=== PATIENT | male | born 1990 | race Caucasian/White ===

== ENCOUNTER 2021-03-27 12:06 | Emergency (ER) | payer SELFPAY ==
[~2021-03-27] VITALS: Ht 175.2 cm; Wt 69.8 kg
--- NOTE | 2021-03-27 12:09 | ED Back Pain ---
General Chief Complaint: Back Problems Stated Complaint: QUE FLANK PAIN History of Present Illness Date Seen by Provider: Mar 27, 2021 Time Seen by Provider: 12:12 Initial Comments 30-year-old male presents with some bilateral lower back pain and upper abdominal pain that started yesterday. Patient reports he is "sick" patient has some chills but no fever patient with a headache. He reports that about 12 days ago he tested positive for strep was negative for Covid. Had 10 days of amoxicillin. Patient denies any nausea vomiting or diarrhea. He denies any cough, shortness of breath, sore throat. Patient reports that he has decreased urine had difficulty urinating. Allergies and Home Medications Allergies Coded Allergies: No Known Drug Allergies (Unverified , 03/27/21) Patient Home Medication List Home Medication List Reviewed: Yes Ciprofloxacin HCl (Ciprofloxacin HCl) 500 Mg Tablet, 500 MG PO BID Prescribed by: BRIAN LAY on 03/27/21 1354 Review of Systems Constitutional: chills; No fever Respiratory: No cough Cardiovascular: No chest pain Gastrointestinal: see HPI; No nausea, No vomiting Genitourinary: see HPI Musculoskeletal: see HPI, back pain Skin: no symptoms reported Psychiatric/Neurological: No Symptoms Reported Physical Exam Vital Signs Vital Signs - First Documented 03/27/21 12:09 Temp 37.5 Pulse 110 Resp 16 B/P (MAP) 130/88 (102) Pulse Ox 99 O2 Delivery Room Air Capillary Refill : Height, Weight, BMI Height: '" Weight: lbs. oz. kg; BMI Method: General Appearance: No Apparent Distress, Anxious Neck: Non Tender, Supple; No Lymphadenopathy (L), No Lymphadenopathy (R) Cardiovascular: Regular Rate, Rhythm Respiratory: Lungs Clear, Normal Breath Sounds Back: CVA Tenderness (L), CVA Tenderness (R) Extremity: Normal Capillary Refill, Normal Range of Motion, Non Tender Neurologic/Psychiatric: Alert, Oriented x3, No Motor/Sensory Deficits, Normal Mood/Affect, bulk sausage casing tier off II-XII Norm as Tested Skin: Normal Color, Warm/Dry Progress/Results/Core Measures Results/Orders Lab Results Laboratory Tests Test 03/27/21 12:10 03/27/21 13:05 Range/Units White Blood Count 14.2 H 4.3-11.0 10^3/uL Red Blood Count 5.05 4.30-5.52 10^6/uL Hemoglobin 15.0 13.3-17.7 g/dL Hematocrit 44 40-54 % Mean Corpuscular Volume 87 80-99 fL Mean Corpuscular Hemoglobin 30 25-34 pg Mean Corpuscular Hemoglobin Concent 34 32-36 g/dL Red Cell Distribution Width 13.2 10.0-14.5 % Platelet Count 305 130-400 10^3/uL Mean Platelet Volume 9.4 9.0-12.2 fL Immature Granulocyte % (Auto) 0 % Neutrophils (%) (Auto) 78 H 42-75 % Lymphocytes (%) (Auto) 12 12-44 % Monocytes (%) (Auto) 8 0-12 % Eosinophils (%) (Auto) 1 0-10 % Basophils (%) (Auto) 0 0-10 % Neutrophils # (Auto) 11.1 H 1.8-7.8 X 10^3 Lymphocytes # (Auto) 1.7 1.0-4.0 X 10^3 Monocytes # (Auto) 1.2 H 0.0-1.0 X 10^3 Eosinophils # (Auto) 0.1 0.0-0.3 10^3/uL Basophils # (Auto) 0.1 0.0-0.1 10^3/uL Immature Granulocyte # (Auto) 0.0 0.0-0.1 10^3/uL Neutrophils % (Manual) 84 % Lymphocytes % (Manual) 13 % Monocytes % (Manual) 3 % Sodium Level 133 L 135-145 MMOL/L Potassium Level 4.5 3.6-5.0 MMOL/L Chloride Level 96 L 98-107 MMOL/L Carbon Dioxide Level 25 21-32 MMOL/L Anion Gap 12 5-14 MMOL/L Blood Urea Nitrogen 8 7-18 MG/DL Creatinine 0.97 0.60-1.30 MG/DL Estimat Glomerular Filtration Rate 90 BUN/Creatinine Ratio 8 Glucose Level 100 70-105 MG/DL Lactic Acid Level 1.08 0.50-2.00 MMOL/L Calcium Level 9.1 8.5-10.1 MG/DL Corrected Calcium 8.9 8.5-10.1 MG/DL Magnesium Level 1.8 1.6-2.4 MG/DL Total Bilirubin 1.4 H 0.1-1.0 MG/DL Aspartate Amino Transf (AST/SGOT) 14 5-34 U/L Alanine Aminotransferase (ALT/SGPT) 10 0-55 U/L Alkaline Phosphatase 90 40-136 U/L C-Reactive Protein 5.24 H <0.50 MG/DL Total Protein 7.8 6.4-8.2 GM/DL Albumin 4.2 3.2-4.5 GM/DL Urine Color YELLOW Urine Clarity SLIGHTLY CLOUDY Urine pH 6.0 5-9 Urine Specific [place] 1.015 L 1.016-1.022 Urine Protein TRACE H NEGATIVE Urine Glucose (UA) NEGATIVE NEGATIVE Urine Ketones 1+ H NEGATIVE Urine Nitrite POSITIVE H NEGATIVE Urine Bilirubin NEGATIVE NEGATIVE Urine Urobilinogen 0.2 < = 1.0 MG/DL Urine Leukocyte Esterase 2+ H NEGATIVE Urine RBC (Auto) TRACE-I H NEGATIVE Urine RBC 0-2 /HPF Urine WBC >100 H /HPF Urine Crystals NONE /LPF Urine Bacteria LARGE H /HPF Urine Casts NONE /LPF Urine Mucus NEGATIVE /LPF Urine Culture Indicated YES My Orders Orders - LAY,BRIAN L DO Cbc With Automated Diff (03/27/21 12:15) Comprehensive Metabolic Panel (03/27/21 12:15) Lactic Acid Analyzer (03/27/21 12:15) Magnesium (03/27/21 12:15) Ua Culture If Indicated (03/27/21 12:15) Crp Fs (03/27/21 12:15) Abdomen Flat & Upright/Decub (03/27/21 12:15) Manual Differential (03/27/21 12:10) Ns Iv 1000 Ml (Sodium Chloride 0.9%) (03/27/21 13:06) Urine Culture (03/27/21 13:05) Ceftriaxone (Rocephin) (03/27/21 13:30) Ct Abdomen/Pelvis Wo (03/27/21 13:22) Medications Given in ED Current Medications Medications Dose Ordered Sig/Adwoa Route Start Time Stop Time Status Last Admin Dose Admin Ceftriaxone Sodium 2000 mg/ Sodium Chloride 50 ml @ 100 mls/hr ONCE ONCE IV 03/27/21 13:30 03/27/21 13:59 03/27/21 13:31 100 MLS/HR Vital Signs/I&O 03/27/21 12:09 Temp 37.5 Pulse 110 Resp 16 B/P (MAP) 130/88 (102) Pulse Ox 99 O2 Delivery Room Air Diagnostic Imaging Diagonstic Imaging: CT Plain Films/CT/US/NM/MRI: abdomen Comments CT ABDOMEN/PELVIS WO PROCEDURE: CT abdomen and pelvis without contrast. TECHNIQUE: Multiple contiguous axial images were obtained through the abdomen and pelvis without the use of intravenous contrast. Auto Exposure Controls were utilized during the CT exam to meet ALARA standards for radiation dose reduction. INDICATION: Flank pain and hematuria, elevated white blood cell count. I have no priors for comparison. FINDINGS: There is a punctate nonobstructing 2 mm stone within the left upper pole renal calyx. The right kidney was without stone. There is a very minimal induration and increased density of the perinephric fat adjacent to the lower pole of the right kidney. No opaque ureteral calculi. The bladder is poorly distended limiting its evaluation, its lumen contained no stone. The air-containing retrocecal appendix showed no thickening or adjacent edema or calculus. Liver, gallbladder, bile ducts, spleen, adrenals and pancreas unremarkable. The aorta is nonaneurysmal. IMPRESSION: 1. A punctate nonobstructing upper pole left renal calculus. There are equivocal findings for mild right-sided perinephric edema but no right-sided obstruction or opaque stone. This can be seen in the setting of infection or recently passed calculus, correlate clinically. 2. No evidence for appendicitis. No acute hepatobiliary abnormality. No bowel obstruction. 3. Urinary bladder poorly distended limiting its evaluation. Reviewed: Reviewed by Me, Reviewed/Discussed Diagonstic Imaging: Xray Plain Films/CT/US/NM/MRI: abdomen Comments Date of Exam:03/27/21 ABDOMEN FLAT & UPRIGHT/DECUB Indication: Abdominal pain, flank pain. Findings: The bowel gas pattern unremarkable. There is no abnormal fecal loading. No suspicious calcifications. No radiographically apparent organomegaly. Impression: Unremarkable supine and upright abdominal films. Reviewed: Reviewed by Me, Reviewed/Discussed Departure Impression Primary Impression: Urinary tract infection Qualified Codes: N10 - Acute pyelonephritis Disposition: 01 HOME, SELF-CARE Condition: Stable Departure-Patient Inst. Referrals: NO,LOCAL PHYSICIAN (PCP/Family) Primary Care Physician Patient Instructions: Kidney Infection (DC), Urinary Tract Infection, Adult ED Add. Discharge Instructions: Drink plenty of fluids Follow-up with your primary care provider in 3 to 4 days for recheck of your urine and ensure you are improving All discharge instructions reviewed with patient and/or family. Voiced understanding. Scripts Ciprofloxacin HCl (Ciprofloxacin HCl) 500 Mg Tablet 500 MG PO BID, #14 TAB Prov: BRIAN LAY DO 03/27/21 Work/School Note: Work Release Form Date Seen in the Emergency Department: Mar 27, 2021 Return to Work: Mar 29, 2021 BRIAN LAY DO Mar 27, 2021 12:09
[2021-03-27 12:22] LABS: BASOPHILS # (AUTO) 0.1 10^3/uL (0.0-0.1); BASOPHILS % (AUTO) 0 % (0-10); EOSINOPHILS # (AUTO) 0.1 10^3/uL (0.0-0.3); EOSINOPHILS % (AUTO) 1 % (0-10); HEMATOCRIT 44 % (40-54); LYMPHOCYTES # (AUTO) 1.7 X 10^3 (1.0-4.0); LYMPHOCYTES % (AUTO) 12 % (12-44); MEAN CORPUSCULAR HEMOGLOBIN 30 pg (25-34); MEAN CORPUSCULAR HGB CONC 34 g/dL (32-36); MEAN CORPUSCULAR VOLUME 87 fL (80-99); MEAN PLATELET VOLUME 9.4 fL (9.0-12.2); MONOCYTES # (AUTO) 1.2 X 10^3 (0.0-1.0); MONOCYTES % (AUTO) 8 % (0-12); NEUTROPHILS # (AUTO) 11.1 X 10^3 (1.8-7.8); NEUTROPHILS % (AUTO) 78 % (42-75); PLATELET COUNT 305 10^3/uL (130-400); WHITE BLOOD COUNT 14.2 10^3/uL (4.3-11.0)
[2021-03-27 12:51] LABS: ALBUMIN 4.2 GM/DL (3.2-4.5); BILIRUBIN,TOTAL 1.4 MG/DL (0.1-1.0); CALCIUM 9.1 MG/DL (8.5-10.1); CREATININE SERUM 0.97 MG/DL (0.60-1.30); MAGNESIUM 1.8 MG/DL (1.6-2.4); POTASSIUM 4.5 MMOL/L (3.6-5.0); TOTAL PROTEIN 7.8 GM/DL (6.4-8.2)
--- NOTE | 2021-03-27 12:54 | Diagnostic Imaging Report ---
Indication: Abdominal pain, flank pain. Findings: The bowel gas pattern unremarkable. There is no abnormal fecal loading. No suspicious calcifications. No radiographically apparent organomegaly. Impression: Unremarkable supine and upright abdominal films. Dictated by: Dictated on workstation # [id number]
[2021-03-27] MEDS ORDERED: NS IV 1000 ML 1,000 ML IV STA (13:06)
[2021-03-27 13:07] LABS: LYMPHOCYTES % (MANUAL) 13 %; MONOCYTES % (MANUAL) 3 %; NEUTROPHILS % (MANUAL) 84 %
[2021-03-27 13:17] LABS: BACTERIA,URINE LARGE /HPF; BILIRUBIN,URINE NEGATIVE (NEGATIVE); CLARITY,URINE SLIGHTLY CLOUDY; COLOR,URINE YELLOW; GLUCOSE, URINE (UA) NEGATIVE (NEGATIVE); KETONES,URINE 1+ (NEGATIVE); LEUKOCYTE ESTERASE ,URINE 2+ (NEGATIVE); NITRITE,URINE POSITIVE (NEGATIVE); PROTEIN,URINE TRACE (NEGATIVE); RBC,URINE 0-2 /HPF; WBC,URINE >100 /HPF
[2021-03-27] MEDS ORDERED: cefTRIAXone 2,000 MG in NS (IVPB) 50 ML IV ONE (13:30)
--- NOTE | 2021-03-27 13:42 | Diagnostic Imaging Report ---
PROCEDURE: CT abdomen and pelvis without contrast. TECHNIQUE: Multiple contiguous axial images were obtained through the abdomen and pelvis without the use of intravenous contrast. Auto Exposure Controls were utilized during the CT exam to meet ALARA standards for radiation dose reduction. INDICATION: Flank pain and hematuria, elevated white blood cell count. I have no priors for comparison. FINDINGS: There is a punctate nonobstructing 2 mm stone within the left upper pole renal calyx. The right kidney was without stone. There is a very minimal induration and increased density of the perinephric fat adjacent to the lower pole of the right kidney. No opaque ureteral calculi. The bladder is poorly distended limiting its evaluation, its lumen contained no stone. The air-containing retrocecal appendix showed no thickening or adjacent edema or calculus. Liver, gallbladder, bile ducts, spleen, adrenals and pancreas unremarkable. The aorta is nonaneurysmal. IMPRESSION: 1. A punctate nonobstructing upper pole left renal calculus. There are equivocal findings for mild right-sided perinephric edema but no right-sided obstruction or opaque stone. This can be seen in the setting of infection or recently passed calculus, correlate clinically. 2. No evidence for appendicitis. No acute hepatobiliary abnormality. No bowel obstruction. 3. Urinary bladder poorly distended limiting its evaluation. Dictated by: Dictated on workstation # [id number]
[2021-03-27] MEDS ORDERED: CIPR500T5 PO (13:54)
[2021-03-27 14:00] VITALS: BP 132/75
== END 2021-03-27 14:21 | disposition home or self-care (01) ==
LOC: ER FS 12:08
DX: N39.0 Urinary tract infection, site not specified (principal)
CPT/HCPCS: 36415; 74019; 74176; 80053; 81000; 83605; 83735; 85007; 85025; 85027; 86141; 87088